=== PATIENT | female | born 1935 | race Caucasian/White ===

== ENCOUNTER → 2017-10-10 | Outpatient (CLI) | payer MEDICARE, OTHER | END | disposition home or self-care (01) | LOC: RD 09:55 | DX: R91.8 Other nonspecific abnormal finding of lung field (principal) ==

== ENCOUNTER 2018-11-07 21:32 | Emergency (ER) | payer MEDICARE, OTHER ==
[~2018-11-07] VITALS: Ht 160 cm; Wt 81.6 kg
[2018-11-07 21:35] VITALS: Ht 160 cm; Wt 81.6 kg
[2018-11-07 23:01] LABS: CALCIUM 8.3 mg/dL (8.5-10.1); CARBON DIOXIDE 28.3 mmol/L (21-32); CHLORIDE SERUM 106 mmol/L (98-107); CREATININE SERUM 0.8 mg/dL (0.6-1.0); GLUCOSE SERUM 111 mg/dL (74-106); POTASSIUM SERUM 3.7 mmol/L (3.5-5.1); SODIUM SERUM 144 mmol/L (136-145)
[2018-11-07 23:06] LABS: ALBUMIN 3.5 g/dL (3.4-5.0); ALKALINE PHOSPHATASE 106 U/L (46-116); ALT/SGPT 33 U/L (14-59); AST/SGOT 26 U/L (15-37); BILIRUBIN TOTAL 0.37 mg/dL (0.20-1.00); LIPASE 186 IU/L (73-393)
[2018-11-07 23:17] LABS: BASOPHIL % 0.2 % (0-2); PLATELET COUNT 255 x10^3mcL (130-400); RED CELL DISTRIBUTION WIDTH 14.1 % (11.5-14.5)
[2018-11-08 01:06] VITALS: BP 160/77
[2018-11-08 01:49] LABS: UA SPECIFIC GRAVITY 1.015 (1.005-1.035); microscopic required? YES; urine erythrocyte NEGATIVE (NEGATIVE)
== END 2018-11-08 01:06 | disposition home or self-care (01) ==
LOC: ED 21:32
PROVIDERS: Emergency Medicine
DX: R10.84 Generalized abdominal pain (principal); R11.10 Vomiting, unspecified; R19.7 Diarrhea, unspecified; R06.02 Shortness of breath; I10 Essential (primary) hypertension
CPT/HCPCS: 87804; J1885; J2405; J7030; Q0092

== ENCOUNTER → 2019-01-09 | Outpatient (CLI) | payer MEDICARE, OTHER | END | disposition home or self-care (01) | LOC: RD 13:33 | DX: M54.5 Low back pain (principal) ==

== ENCOUNTER 2019-07-07 09:18 | Inpatient (IN) | payer OTHER, MEDICARE ==
[~2019-07-07] VITALS: Ht 160 cm; Wt 81.6 kg
[2019-07-07 09:20] VITALS: Ht 160 cm; Wt 81.6 kg
--- NOTE | 2019-07-07 09:28 | NUR ---
PT GIOVANNIA, PER GRANDDAUGHTER, PT HAD A SEIZURE LIKE ACTIVITY WHILE SITTING IN COUCH, APPROX 1 MINUTE , TONIC CLONIC IN APPEARANCE, STATES SHE FOAMED AT MOUTH AND HAD A SYNCOPAL EPISODE SOON THERAFTER, DENIES ANY HEAD TRAUMA. PT AAOX4 AT THIS TIME, REPORTS LEFT LOWER BACK PAIN 8/10 AT THIS TIME. SL #20 TO LEFT AC, INSERTED BY SALON DESIGNER. PT DENIES ANY CP OR SOB, ONLY C/O CHRONIC ULISES KNEE PAIN. RESP EVENA ND UNALBORED, ON RA @96%. SAFETY PRECAUTIONS IN PLACE, GRANDTR IN ROOM.
--- NOTE | 2019-07-07 09:51 | NUR ---
PT TO CT [facility] VIA JOSE MANUEL.
[2019-07-07 10:12] LABS: CALCIUM 8.2 mg/dL (8.5-10.1); CARBON DIOXIDE 26.2 mmol/L (21-32); CHLORIDE SERUM 101 mmol/L (98-107); CREATININE SERUM 0.8 mg/dL (0.6-1.0); GLUCOSE SERUM 130 mg/dL (74-106); POTASSIUM SERUM 3.6 mmol/L (3.5-5.1); SODIUM SERUM 142 mmol/L (136-145)
[2019-07-07 10:17] LABS: ALBUMIN 3.5 g/dL (3.4-5.0); ALKALINE PHOSPHATASE 98 U/L (46-116); ALT/SGPT 24 U/L (14-59); AST/SGOT 21 U/L (15-37); BILIRUBIN TOTAL 0.6 mg/dL (0.20-1.00); TOTAL PROTEIN, SERUM 8.1 g/dL (6.4-8.2)
[2019-07-07 11:00] LABS: CALCIUM 8.4 mg/dL (8.5-10.1); HDL CHOLESTEROL 56 mg/dL (40-60); LIPASE 221 IU/L (73-393); MAGNESIUM 2.1 mg/dL (1.8-2.4); T4(THYROXINE) 9.8 ug/dL (4.7-13.3)
[2019-07-07 11:03] LABS: CHOLESTEROL 220 mg/dL (<200)
[2019-07-07 11:31] LABS: AMPHETAMINE QUAL UR NONE DETECTED (See below)
--- NOTE | 2019-07-07 11:39 | NUR ---
NO ACUTE CHANGES,PT WITH EYES CLOSED LAYING ON BED,. FAMILY AT BEDSIDE. DR PRESLEY INFORMED OF HIGH BP 168/84 AND THE FACT THAT PT DID NOT TAKE ANTIHYPERTENSIVES THIS AM BECAUSE SHE HAD AN EMPTY STOMACH, NO ORDERS RECEIVED.
[2019-07-07] MEDS ORDERED: PRO60 PO (12:15)
[2019-07-07] MEDS ORDERED: DITROPAN XL5 MG PO (12:15)
--- NOTE | 2019-07-07 12:33 | NUR ---
REPORT CHAVEZ ROTHMAN RN, UPDATED ON STAUSMLABS AND VITALS. PT HYPERTENSIVE AT 187/93
--- NOTE | 2019-07-07 12:41 | NUR ---
MEDICATED ORDERED, MONITORING BP FOR TRANSFER.
--- NOTE | 2019-07-07 14:18 | NUR ---
SPOKE WITH NEFTALY IN LAB, STATES WBC IN ABNORMALLY HIGH, WILL RUN GAIN. PER DR PERDOMO, DO NOT TRANSFER AT THIS TIME.
--- NOTE | 2019-07-07 14:36 | NUR ---
MORTGAGE LOAN COMPUTATION CLERK AT BEDSIDE FOR BLOOD DRAW AGAIN, ALSO URINE PENDING. CN AWARE.
[2019-07-07 15:29] LABS: microscopic required? YES; urine erythrocyte NEGATIVE (NEGATIVE)
--- NOTE | 2019-07-07 15:42 | NUR ---
NO ACUTE CHANGE IN CONDITION, FAMILY AT BEDSIDE. IN NAD., DENIES ANY SOB OR CP ATTHIS TIME, REPORTS HEADACHE MINIMIZED AFTER ANTIHYPERTENSIVES GIVEN.
[2019-07-07 16:02] LABS: BASOPHIL % 0.2 % (0-2); PLATELET COUNT 272 x10^3mcL (130-400)
--- NOTE | 2019-07-07 16:13 | NUR ---
UPDATED STEPHAN ON PT'S STAUS, LABS AND RECENT VITALS.PT STABLE FOR TRAMSFER. ALL BELONGINGS WITH PT.
--- NOTE | 2019-07-07 16:35 | NUR ---
RECEIVED PATIENT FROM ER VIA GUERNEY, AWAKE/ALERT/ORIENTED X4, DENIES DIZZINESS. PATIENT ABLE TO AMBULATE WITH STANDBY ASSIST, IV TO LAC #[address] INTA[address] TELE #13 NSR HR 70-73. ORIENTED TO CALL LIGHT.
[2019-07-07 16:57] VITALS: BP 122/71
--- NOTE | 2019-07-07 17:14 | NUR ---
TECH AT BEDSIDE PERFORM ULTRASOUND, FAMILY MEMBERS REMAIN AT BEDSIDE.
--- NOTE | 2019-07-07 19:10 | NUR ---
RECEIVED PT SITTING UP IN BED, NO ACUTE DISTRESS OBSERVED. DENIES PAIN OR DISCOMFORT. AA/OX4, ABLE TO MAKE NEEDS KNOWN, SPEECH CLEAR AND APPROPRIATE, DENIES IRBY OR DIZZINESS AT THIS TIME. BILATERAL HAND ARMOR RECONNAISSANCE SPECIALIST STRONG AND EQUAL. SEIZURE PADS IN PLACE. NSR TO TELE #13, HR 62, DENIES CP OR PRESSURE. PULSES PRESENT AND EQUAL THROUGHOUT, NO EDEMA. BREATHING ON RA, EVEN AND UNLABORED, NO SOB OR DYSPNEA OBSERVED. ABD ROUND AND SOFT WITH ACTIVE BOWEL SOUNDS, DENIES N/V/D. FREELY VOIDS URINE, DENIES BURNING, FREQUENCY, OR HESITATION. GENERALIZED WEAKNESS, AMBULATORY WITH ASSIST, USES CANE AT BASELINE, P.T. EVAL PENDING. IV TO LAC IN PLACE, DRY, PATENT, INTACT, S/L AT THIS TIME, NO PAIN, REDNESS OR SWELLING WHEN FLUSHED WITH NS. COMFORT AND SAFETY MEASURES IN PLACE. FALL PRECAUTIONS IN PLACE. BED IN LOWEST POSITION WITH SIDE RAILS UPX2 AND BED ALARM ACTIVATED. ALL NEEDS ASSESSED AND ATTENDED TO. CALL LIGHT WITHIN REACH. WILL CONTINUE TO MONITOR
[2019-07-07 20:39] VITALS: BP 140/68
--- NOTE | 2019-07-07 23:06 | NUR ---
CALLED TO INITIATE TELE NEURO CONSULTATION ORDERED. PER TU, FROM [facility] TELE MED, NO NEURO DOCTOR WILL BE AVAILABLE UNTIL TOMORROW, 07/08/19 BETWEEN [phone]. ALL REQUESTED NECESSARY INFO PROVIDED. CALL WILL BE PLACED TO [facility] NURSE'S STATION 30 MINUTES PRIOR TO NEUROLOGIST BEING READY IN ORDER TO SETUP NECESSARY EQUIPMENT. H&P, RECENT LABS AND VITALS FROM TOMORROW MORNING, MEDICATION LIST, AND ALL PROGRESS NOTES TO BE FAXED TO IN THE MORNING IN ORDER FOR NEUROLOGIST TO HAVE ALL NECESSARY INFO. CHARGE NURSE UPDATED. DR. BACA PAGED TO UPDATE WELL, WILL ANTICIPATE CALL BACK
--- NOTE | 2019-07-08 00:22 | NUR ---
DR. BACA MADE AWARE OF PT'S UA RESULTS, MANY BACTERIA. NO NEED FOR ABX AT THIS TIME
--- NOTE | 2019-07-08 00:45 | NUR ---
ROUNDS MADE, NO ACUTE DISTRESS OBSERVED, DENIES PAIN OR DISCOMFORT AT THIS TIME. ASSISTED TO BATHROOM TO URINATE BY YOUTH OFFICER. BACK TO BED WITHOUT INCIDENT. CALL LIGHT WITHIN REACH. WILL CONTINUE TO MONITOR
[2019-07-08 05:28] VITALS: BP 144/72
--- NOTE | 2019-07-08 06:22 | NUR ---
NO SIGNIFICANT CHANGES TO REPORT, PT COMPLIED WITH NURSING CARE THROUGHOUT THE SHIFT WITH NO ACUTE EVENTS OVERNIGHT. NO ACUTE DISTRESS OBSERVED AT THIS TIME, PT LAYING IN BED, BREATHING EVEN AND UNLABORED. COMFORT AND SAFETY MEASURES MAINTAINED. ALL NEEDS ASSESSED AND ATTEDNED TO. CALL LIGHT WITHIN REACH. WILL CONTINUE TO MONITOR AND ENDORSE CARE TO DAY SHIFT NURSE
[2019-07-08 06:25] LABS: BASOPHIL % 0.2 % (0-2); PLATELET COUNT 234 x10^3mcL (130-400); RED CELL DISTRIBUTION WIDTH 14.1 % (11.5-14.5)
[2019-07-08 06:54] LABS: CALCIUM 8.3 mg/dL (8.5-10.1); CARBON DIOXIDE 27.3 mmol/L (21-32); CHLORIDE SERUM 106 mmol/L (98-107); CREATININE SERUM 0.8 mg/dL (0.6-1.0); GLUCOSE SERUM 103 mg/dL (74-106); MAGNESIUM 2.2 mg/dL (1.8-2.4); PHOSPHOROUS 3.8 mg/dL (2.5-4.9); POTASSIUM SERUM 3.7 mmol/L (3.5-5.1); SODIUM SERUM 142 mmol/L (136-145)
--- NOTE | 2019-07-08 07:15 | NUR ---
RECEIVED PATIENT SLEEPING AROUSABLE, DENIES PAIN AT THIS TIME. NO DISTRESS NOTED. TELE #13 NSR W/ HR 68. IV TO LAC INTACT AND SL NOTED. CALL LIGHT WITHIN REACH.
[2019-07-08 07:50] VITALS: BP 145/77
--- NOTE | 2019-07-08 08:41 | NUR ---
PATIENT UP TO BATHROOM WITH CAN STEADY GAIT, NO ASSIST NEEDED. BACK TO BED. ALL PO MEDS ADNMINISTERED. PT TOLERATED. DTR REMAIN AT BEDISE UPDATE POC. NEEDS MET. CALL LIGHT WITHIN REACH.
--- NOTE | 2019-07-08 11:01 | NUR ---
TELE NEURO CENTER CALL AND RN AT BEDSIDE SETUP AND PROVIDE PATIENT NAME/DATE OF , WAITING FOR DOCTOR. PATIENT LAYING IN BED WITH TECH PREFORM ECHO. DR. HOLMAN NEUROLOGIST INTERVIEW BRITTANY CARRILLO.
--- NOTE | 2019-07-08 11:14 | NUR ---
PER DR. TRACY RECOMMEND EEG AND HIS STANDPOINT NO EPILEPSY INVOLVE.
[2019-07-08 12:15] VITALS: BP 144/75
--- NOTE | 2019-07-08 13:28 | NUR ---
PATIENT RESTING IN BED WITH FAMILY MEMBERS AT BEDSIDE, NO COMPLAINS. NO NEEDS ATTENDED. CONT TO MONITOR.
[2019-07-08 15:04] VITALS: BP 144/75
--- NOTE | 2019-07-08 16:00 | NUR ---
CN NURSE AISLINN GAVE DISCHARGE INSTRUCTION AND IV REMOVED WITH CATH INTACT; NO S/S OF INFECTION. GAUZES APPLIED TO SITE, TELE REMOVED AND GAVE TO LAUREANO TO BRING TO MONITOR ROOM. FREELANCE COURT REPORTER ASSISTING WHEEL PATIENT OUT WITH DTR.
--- NOTE | 2019-07-08 16:09 | NUR ---
PT DISCHARGED HOME TODAY PER (RESIDENT) ORDER. PT A/OX4. DENIES HEADEACHE. DENIES PAIN. DENIES CHEST PAIN. DENIES N/V. EXPLAINED DISCHARGE INSTRUCTIONS TO PT (TRANSLATED IN EMIRATI) AND DAUGHTER WHO SPEAKS AND UNDERSTAND VERY GOOD THAI AND FOLLOW UP APPOINTMENT TO PT PCP AND BOTH VERBALIZED UNDERSTANDING TO INSTRUCTIONS GIVEN. IV D/C'D AND NO REDNESS, NO INFECTION AND NO INFILTRATION NOTED TO SITE. ALL QUESTIONS ANSWERED. ALL PERSONAL BELONGINGS SENT WITH PT ON DISCHARGE. DENIES DIZZINESS. PT VERY HAPPY TO GO HOME AND NO PROBLEMS ENCOUNTERED DURING DISCHARGE. DAUGHTER AT THE BEDSIDE AND C.N.A HAD ASSISTED PT AND WHEELED AT THE LOBBY. SALUD ARIZMENDI ASSIGNED TO THIS PT AWARE OF ABOVE.
== END 2019-07-08 16:05 | disposition home or self-care (01) | DRG 48 ==
LOC: ED 09:18 → DU 11:55
PROVIDERS: Emergency Medicine; ADMIT Internal Medicine
DX: G90.8 Other disorders of autonomic nervous system (principal); E66.9 Obesity, unspecified; E78.5 Hyperlipidemia, unspecified; I10 Essential (primary) hypertension; R73.03 Prediabetes; I16.0 Hypertensive urgency; Z96.653 Presence of artificial knee joint, bilateral; Z98.51 Tubal ligation status; Z82.49 Family history of ischemic heart disease and other diseases of the circulatory system; Z68.35 Body mass index [BMI] 35.0-35.9, adult
CPT/HCPCS: 97116-GP; G0378; G0480; Q0092